=== PATIENT | female | born 1995 | race Caucasian/White ===

== ENCOUNTER → 2016-10-04 | Outpatient (CLI) | payer BC ==
[~2016-10-04] MED LIST: AUGM875T27 PO; BIOT1CAP2 PO; DEPO150I IM; FISH1000 PO; LORT5TAB PO; MESA50SU PR; MULTCAP11 PO; OMEP40CA2 PO; PERCOCET PO; RIZA5TAB3 PO; TURM500T PO; TYLE325T5 PO; [UNRECOGNIZED DRUG - OTHER]; plaquenil PO; primrose oil PO
[2016-10-04 15:23] LABS: ALBUMIN 3.9 GM/DL (3.2-5.2); ALBUMIN/GLOBULIN RATIO 1.08 (1.00-1.93); BILIRUBIN,DIRECT 0.1 MG/DL (0.0-0.2); BILIRUBIN,TOTAL 0.4 MG/DL (0.2-1.0); TOTAL PROTEIN 7.5 GM/DL (6.4-8.2)
== END ==
LOC: M WUC 10:06
PROVIDERS: ATTEND Internal Medicine Gastroenterology
DX: R10.13 Epigastric pain (principal)

== ENCOUNTER → 2016-10-07 | Outpatient (CLI) | payer BC ==
[~2016-10-07] VITALS: Ht 160 cm; Wt 56.7 kg
[~2016-10-07] MED LIST changes: +NS 1,000 ML IV SCH; +PROPOFOL 200 MG/20 ML VIAL As Ordered ONE
--- NOTE | 2016-10-07 16:16 | ROOR ---
Patient Name: Lucretia Reyez Procedure Date: 10/07/2016 4:00 PM Date of : 1995 Age: 21 Room: [facility] Gender: Female Note Status: Finalized Procedure: Upper GI endoscopy Indications: Epigastric abdominal pain Providers: Geraldo TAPIA MD Referring MD: GIORGIO GOLD MD Requesting Provider: Medicines: Monitored Anesthesia Care Complications: No immediate complications. Procedure: Pre-Anesthesia Assessment: - The heart rate, respiratory rate, oxygen saturations, blood pressure, adequacy of pulmonary ventilation, and response to care were monitored throughout the procedure. The Endoscope was introduced through the mouth, and advanced to the second part of duodenum. The upper GI endoscopy was accomplished without difficulty. The patient tolerated the procedure well. Findings: The esophagus was normal. The stomach was normal. The examined duodenum was normal. Impression: - Normal esophagus. - Normal stomach. - Normal examined duodenum. - No specimens collected. Recommendation: - Continue present medications. - Observe patient's clinical course. - Use Dicyclomine 10-20 mg every 4-6 hrs as needed for abdominal pain.--script sent to your pharmacy - Perform CT scan (computed tomography) of the abdomen with contrast at appointment to be scheduled. - To discuss todays findings, my office will call you in the next few days to schedule a follow up appointment. Geraldo Tapia MD Geraldo TAPIA MD 10/07/2016 4:15:27 PM This report has been signed electronically. Number of Addenda: 0 Note Initiated On: 10/07/2016 4:00 PM Estimated Blood Loss: Estimated blood loss: none.
[2016-10-07 16:30] VITALS: BP 106/72
== END | disposition home or self-care (01) ==
LOC: M OPP 13:50
PROVIDERS: ATTEND Internal Medicine Gastroenterology
DX: R10.13 Epigastric pain (principal); K52.9 Noninfective gastroenteritis and colitis, unspecified; R11.0 Nausea; D68.61 Antiphospholipid syndrome; M06.9 Rheumatoid arthritis, unspecified; M32.9 Systemic lupus erythematosus, unspecified; F42.9 Obsessive-compulsive disorder, unspecified; I73.00 Raynaud's syndrome without gangrene; F41.9 Anxiety disorder, unspecified; G43.909 Migraine, unspecified, not intractable, without status migrainosus; F90.9 Attention-deficit hyperactivity disorder, unspecified type; Z87.891 Personal history of nicotine dependence; Z79.899 Other long term (current) drug therapy

== ENCOUNTER → 2016-11-30 | Outpatient (CLI) | payer BC ==
[~2016-11-30] MED LIST changes: +GASTROGRAFIN SOLUTION 30ML (Q9963) As Ordered ONE; +ISOVUE-370 76% 100ML VIAL (Q9967) As Ordered ONE; -NS 1,000 ML IV SCH; -PROPOFOL 200 MG/20 ML VIAL As Ordered ONE
--- NOTE | 2016-12-01 04:01 | REP ---
Clinical: Epigastric abdominal pain and weight loss. Technique: Axial contrast enhanced images from the lung bases to the mid iliac wings using oral and 100 ml Isovue 370 intravenous contrast material with coronal and sagittal re-formations. Comparison: 05/18/2015. Findings: Lung bases clear. Visualized heart and pericardium normal. Liver, spleen, pancreas, gallbladder, bilateral adrenal glands and kidneys are normal. The visualized enteric system including stomach, small and large bowel is without obstruction or acute inflammatory process. No ascites. No free air. No obvious adenopathy. Vasculature normal. Musculoskeletal structures are intact. Impression: Normal contrast enhanced CT of the abdomen. Signed by Jamal Monae MD 12/01/2016 03:52 A
== END ==
LOC: M RAD 13:59
PROVIDERS: ATTEND Internal Medicine Gastroenterology
DX: R63.4 Abnormal weight loss (principal); R10.13 Epigastric pain; K51.30 Ulcerative (chronic) rectosigmoiditis without complications
CPT/HCPCS: 74160; Q9963; Q9967

== ENCOUNTER → 2016-12-21 | Outpatient (CLI) | payer BC ==
[~2016-12-21] MED LIST changes: -GASTROGRAFIN SOLUTION 30ML (Q9963) As Ordered ONE; -ISOVUE-370 76% 100ML VIAL (Q9967) As Ordered ONE
--- NOTE | 2016-12-21 10:59 | REP ---
Gastric emptying nuclear scintigraphy: History: Epigastric pain Technique: 0.982 mCi of technetium-99m sulfur colloid was ingested in two scrambled eggs and 6 ounces of water and sequential anterior and posterior images are acquired for an 89-minute imaging observation period. Regions of interest are drawn around the stomach to plot gastric emptying. Scintigraphic findings: Expected T1/2 is 90 minutes. 85 % emptying is observed in this patient during the 89-minute imaging observation period, for a calculated T1/2 in this patient of 51 minutes. Impression: Normal gastric emptying. Signed by Santos Miramontes MD 12/21/2016 10:50 A
== END ==
LOC: M RAD 07:41
PROVIDERS: ATTEND Internal Medicine Gastroenterology
DX: R10.13 Epigastric pain (principal)

== ENCOUNTER → 2017-06-08 | Outpatient (REF) | payer BC ==
[~2017-06-08] MED LIST changes: -AUGM875T27 PO; +AUGM875T28 PO
== END ==
LOC: M LAB REF 13:05
PROVIDERS: ATTEND Family Medicine
DX: R30.0 Dysuria (principal); N39.0 Urinary tract infection, site not specified

== ENCOUNTER 2017-08-13 11:14 | Emergency (ER) | payer BC ==
[2017-08-13 12:49] LABS: BASO # 0.1 10^3/uL (0.0-0.2); BASO % 0.7 % (0.0-1.0); EOS # 0.1 10^3/uL (0.0-0.50); EOS % 1.1 % (0.0-3.0); HEMATOCRIT 40.5 % (36.0-47.0); HEMOGLOBIN 13.9 g/dl (12.0-16.0); IMMATURE GRANULOCYTE % 0.4 % (0-3.0); LYMPH % 21.9 % (24.0-44.0); MEAN CORPUSCULAR HEMOGLOBIN 29.8 pg (27.0-33.0); MEAN CORPUSCULAR HGB CONC 34.3 g/dl (32.0-36.5); MEAN CORPUSCULAR VOLUME 86.9 fl (80.0-96.0); MONO # 0.8 10^3/uL (0.0-0.8); MONO % 8.3 % (0.0-5.0); NEUTROPHILS # 6.2 10^3/uL (1.8-7.7); NEUTROPHILS % 67.6 % (36.0-66.0); PLATELET COUNT, AUTOMATED 270 10^3/uL (150-450); RED BLOOD COUNT 4.66 10^6/uL (4.00-5.40); RED CELL DISTRIBUTION WIDTH 12.7 % (11.5-14.5); WHITE BLOOD COUNT 9.1 10^3/uL (4.0-10.0)
[2017-08-13] MEDS: ONDANSETRON 4MG/2ML VIAL (J2405) IV (12:54)
[2017-08-13] MEDS: NS 1,000 ML IV (12:55)
[2017-08-13] MEDS: MORPHINE 2 MG/ML 1ML SYRINGE (J2270) IV (12:58)
[2017-08-13 13:17] LABS: ALBUMIN 4.5 GM/DL (3.2-5.2); ALBUMIN/GLOBULIN RATIO 1.25 (1.00-1.93); ALKALINE PHOSPHATASE 68 U/L (45-117); ALT/SGPT 24 U/L (12-78); ANION GAP 8 MEQ/L (8-16); AST/SGOT 19 U/L (7-37); BILIRUBIN,DIRECT 0.2 MG/DL (0.0-0.2); BILIRUBIN,TOTAL 0.5 MG/DL (0.2-1.0); BLOOD UREA NITROGEN 18 MG/DL (7-18); CARBON DIOXIDE LEVEL 24 MEQ/L (21-32); CHLORIDE LEVEL 110 MEQ/L (98-107); CREATININE FOR GFR 0.94 MG/DL (0.55-1.30); GLOMERULAR FILTRATION RATE > 60.0 (>60); GLUCOSE, FASTING 83 MG/DL (70-100); LIPASE 113 U/L (73-393); POTASSIUM SERUM 3.7 MEQ/L (3.5-5.1); SODIUM LEVEL 142 MEQ/L (136-145); TOTAL PROTEIN 8.1 GM/DL (6.4-8.2)
[2017-08-13] MEDS ORDERED: ISOVUE-370 76% 100ML VIAL (Q9967) As Ordered (13:20)
[2017-08-13 13:41] LABS: KETONE, URINE AUTO RFX NEGATIVE (NEGATIVE); LEUKOCYTE ESTERASE UR AUTO RFX NEGATIVE (NEGATIVE); MUCUS, URINE RFX SMALL (NEGATIVE); NITRITE, URINE AUTO RFX NEGATIVE (NEGATIVE); RBC, URINE AUTO RFX 1 /HPF (0-3); SPECIFIC GRAVITY UR AUTO RFX 1.023 (1.002-1.035); SQUAM EPITHELIAL CELL UR AURFX 0 /HPF (0-6); WBC, URINE AUTO RFX 1 /HPF (0-3)
[2017-08-13] MEDS: methylPREDNISolone INJ 125 MG/2 ML VIAL (J2930) IV (15:42)
== END 2017-08-13 15:48 | disposition home or self-care (01) ==
LOC: M ED 11:14
DX: K51.90 Ulcerative colitis, unspecified, without complications (principal); F42.9 Obsessive-compulsive disorder, unspecified; M32.9 Systemic lupus erythematosus, unspecified; G43.909 Migraine, unspecified, not intractable, without status migrainosus; I73.00 Raynaud's syndrome without gangrene; D68.61 Antiphospholipid syndrome; Z87.891 Personal history of nicotine dependence; Z79.899 Other long term (current) drug therapy
CPT/HCPCS: J2405

== ENCOUNTER → 2017-08-15 | Outpatient (REF) | payer BC | LOC: M LAB REF 15:15 | DX: R19.7 Diarrhea, unspecified (principal) | CPT/HCPCS: 83630 ==

== ENCOUNTER → 2017-12-01 | Outpatient (REF) | payer BC ==
[2017-12-01 11:05] LABS: BASO % 0.7 % (0.0-1.0); EOS # 0.1 10^3/uL (0.0-0.50); EOS % 1.8 % (0.0-3.0); HEMATOCRIT 40.9 % (36.0-47.0); HEMOGLOBIN 13.8 g/dl (12.0-15.5); IMMATURE GRANULOCYTE % 0.5 % (0-3.0); LYMPH # 1.7 10^3/uL (1.5-6.5); LYMPH % 28.5 % (24.0-44.0); MEAN CORPUSCULAR HEMOGLOBIN 30.1 pg (27.0-33.0); MEAN CORPUSCULAR HGB CONC 33.7 g/dl (32.0-36.5); MEAN CORPUSCULAR VOLUME 89.1 fl (80.0-96.0); MONO # 0.4 10^3/uL (0.0-0.8); NEUTROPHILS # 3.7 10^3/uL (1.8-7.7); NEUTROPHILS % 62.5 % (36.0-66.0); PLATELET COUNT, AUTOMATED 245 10^3/uL (150-450); RED BLOOD COUNT 4.59 10^6/uL (4.00-5.40); RED CELL DISTRIBUTION WIDTH 12.4 % (11.5-14.5)
[2017-12-01 12:02] LABS: ANION GAP 6 MEQ/L (8-16); BLOOD UREA NITROGEN 20 MG/DL (7-18); CARBON DIOXIDE LEVEL 27 MEQ/L (21-32); CHLORIDE LEVEL 110 MEQ/L (98-107); CREATININE FOR GFR 1.02 MG/DL (0.55-1.30); GLOMERULAR FILTRATION RATE > 60.0 (>60); GLUCOSE, FASTING 120 MG/DL (70-100); POTASSIUM SERUM 3.8 MEQ/L (3.5-5.1); SODIUM LEVEL 143 MEQ/L (136-145)
== END ==
LOC: M LABDRAW1 10:21
DX: R53.81 Other malaise (principal); M32.9 Systemic lupus erythematosus, unspecified; N23 Unspecified renal colic
CPT/HCPCS: 80048

== ENCOUNTER → 2018-01-09 | Outpatient (REF) | payer BC ==
[2018-01-09 14:50] LABS: CHLAMYDIA DNA AMPLIFICATION NEGATIVE (NEGATIVE); GC DNA AMPLIFICATION NEGATIVE (NEGATIVE)
== END ==
LOC: M LAB REF 13:09
DX: Z11.3 Encounter for screening for infections with a predominantly sexual mode of transmission (principal); Z12.4 Encounter for screening for malignant neoplasm of cervix

== ENCOUNTER → 2018-05-23 | Outpatient (REF) | payer OTHER, BC | LOC: M SFHCPLAZ 09:06 | DX: M32.9 Systemic lupus erythematosus, unspecified (principal) ==

== ENCOUNTER → 2018-05-23 | Outpatient (REF) | payer OTHER, BC ==
[2018-05-23 19:48] LABS: AMORPHOUS SEDIMENT LARGE (NEGATIVE); APPEARANCE, URINE TURBID (CLEAR); BACTERIA, URINE AUTO NEGATIVE (NEGATIVE); BASO # 0.1 10^3/uL (0.0-0.2); BASO % 0.9 % (0.0-1.0); BILIRUBIN, URINE AUTO NEGATIVE (NEGATIVE); BLOOD, URINE BLOOD NEGATIVE (NEGATIVE); COLOR, URINE AMBER (YELLOW); EOS # 0.1 10^3/uL (0.0-0.50); EOS % 1.5 % (0.0-3.0); GLUCOSE, URINE (UA) AUTO NEGATIVE (NEGATIVE); HEMATOCRIT 42.2 % (36.0-47.0); IMMATURE GRANULOCYTE % 0.5 % (0-3.0); KETONE, URINE AUTO NEGATIVE (NEGATIVE); LEUKOCYTE ESTERASE, URINE AUTO NEGATIVE (NEGATIVE); MEAN CORPUSCULAR HEMOGLOBIN 29.7 pg (27.0-33.0); MEAN CORPUSCULAR HGB CONC 33.2 g/dl (32.0-36.5); MEAN CORPUSCULAR VOLUME 89.6 fl (80.0-96.0); MONO # 0.5 10^3/uL (0.0-0.8); MONO % 7.6 % (0.0-5.0); MUCUS, URINE SMALL (NEGATIVE); NEUTROPHILS # 3.9 10^3/uL (1.8-7.7); NEUTROPHILS % 59.5 % (36.0-66.0); NITRITE, URINE AUTO NEGATIVE (NEGATIVE); PLATELET COUNT, AUTOMATED 267 10^3/uL (150-450); PROTEIN, URINE AUTO NEGATIVE (NEGATIVE); RBC, URINE AUTO 0 /HPF (0-3); RED BLOOD COUNT 4.71 10^6/uL (4.00-5.40); RED CELL DISTRIBUTION WIDTH 12.6 % (11.5-14.5); SPECIFIC GRAVITY URINE AUTO 1.029 (1.002-1.035); SQUAMOUS EPITHELIAL CELL UR AU 0 /HPF (0-6); UROBILINOGEN, URINE AUTO 0.2 mg/dL (0.0-2.0); WBC, URINE AUTO 0 /HPF (0-3); WHITE BLOOD COUNT 6.6 10^3/uL (4.0-10.0)
[2018-05-23 19:54] LABS: ALBUMIN 4.4 GM/DL (3.2-5.2); ALBUMIN/GLOBULIN RATIO 1.29 (1.00-1.93); ALKALINE PHOSPHATASE 75 U/L (45-117); ALT/SGPT 26 U/L (12-78); ANION GAP 4 MEQ/L (8-16); AST/SGOT 20 U/L (7-37); BILIRUBIN,TOTAL 0.5 MG/DL (0.2-1.0); BLOOD UREA NITROGEN 25 MG/DL (7-18); C REACTIVE PROTEIN QUANTITATIV < 0.30 MG/DL (0.00-0.30); CALCIUM LEVEL 9.2 MG/DL (8.5-10.1); CARBON DIOXIDE LEVEL 28 MEQ/L (21-32); CHLORIDE LEVEL 109 MEQ/L (98-107); COMPLEMENT C3 96 MG/DL (90-180); COMPLEMENT C4 21 MG/DL (10-40); CREATININE FOR GFR 0.93 MG/DL (0.55-1.30); GLOMERULAR FILTRATION RATE > 60.0 (>60); GLUCOSE, FASTING 70 MG/DL (70-100); POTASSIUM SERUM 3.7 MEQ/L (3.5-5.1); SODIUM LEVEL 141 MEQ/L (136-145); TOTAL PROTEIN 7.8 GM/DL (6.4-8.2)
[2018-05-23 20:14] LABS: TOTAL PROTEIN,RANDOM URINE 32.4 MG/DL (0.0-12.0)
[2018-05-24 06:57] LABS: ERYTHROCYTE SEDIMENTATION RATE 6 mm/hr (0-20)
[2018-05-28 00:10] LABS: ANA (HEP2) Positive (.); ANTI DOUBLE STRAND-DNA AB 1 IU/mL (0-9); ANTI JO-1 ANTIBODIES <0.2 AI (0.0-0.9); BETA-2 GLYCOPROTEIN I ABY IGA <9 (0-25); BETA-2 GLYCOPROTEIN I ABY IGG 11 (0-20); BETA-2 GLYCOPROTEIN I ABY IGM <9 (0-32); CARDIOLIPIN IGA ANTIBODY <9 APL U/mL (0-11); CARDIOLIPIN IGG ANTIBODY <9 GPL U/mL (0-14); CARDIOLIPIN IGM ANTIBODY 11 MPL U/mL (0-12); RNP ANTIBODY < 0.2 AI (0.0-0.9); SMITHS ANTIBODY < 0.2 AI (0.0-0.9); SSA SJOGRENS A <0.2 AI (0.0-0.9); SSB SJOGRENS B <0.2 AI (0.0-0.9)
[2018-05-29 09:17] LABS: DRVV SCREEN 41.1 SEC
== END ==
LOC: M SFHCPLAZ 19:05
DX: M32.9 Systemic lupus erythematosus, unspecified (principal)
CPT/HCPCS: 80053

== ENCOUNTER → 2018-05-23 | Outpatient (CLI) | payer OTHER, BC | LOC: M ADAMS 15:22 | DX: M25.571 Pain in right ankle and joints of right foot (principal) | CPT/HCPCS: 73610 ==

== ENCOUNTER 2023-08-07 22:47 | Emergency (ER) | payer BC, OTHER ==
[~2023-08-07] VITALS: Ht 165.1 cm; Wt 70.1 kg
[~2023-08-07 22:47] MED LIST changes: +AMIT10TA7 PO; +LEXA1TAB2 PO; +LIAL1.2T PO; -OMEP40CA2 PO; +OMEP40CA4 PO; +PRED20TA PO; -RIZA5TAB3 PO; +RIZA5TAB52 PO; +ZOFR4TAB14 PO
[2023-08-08] MEDS: ONDANSETRON 4MG 2ML VIAL IV ONE (00:41)
[2023-08-08] MEDS: NS 1,000 ML IV ONE (00:41)
[2023-08-08] MEDS: KETOROLAC 30 MG/ML 1ML VIAL IV ONE (00:41)
[2023-08-08] MEDS ORDERED: ONDA4TAB6 PO (00:48)
[2023-08-08] MEDS ORDERED: OSEL75CA PO (00:48)
[2023-08-08 00:51] LABS: BASO % 0.4 % (0.0-1.0); EOS % 0.2 % (0.0-3.0); HEMATOCRIT 37.9 % (36.0-47.0); HEMOGLOBIN 12.8 g/dl (12.0-15.5); LYMPH # 0.4 10^3/uL (1.5-5.0); LYMPH % 7.7 % (24.0-44.0); MEAN CORPUSCULAR HEMOGLOBIN 27.8 pg (27.0-33.0); MEAN CORPUSCULAR HGB CONC 33.8 g/dl (32.0-36.5); MEAN CORPUSCULAR VOLUME 82.4 fl (80.0-96.0); MONO # 0.7 10^3/uL (0.0-0.8); MONO % 13.9 % (2.0-8.0); NEUTROPHILS # 3.9 10^3/uL (1.5-8.5); PLATELET COUNT, AUTOMATED 219 10^3/uL (150-450); WHITE BLOOD COUNT 5.1 10^3/uL (4.0-10.0)
[2023-08-08 01:16] LABS: ALKALINE PHOSPHATASE 71 U/L (46-116); ALT/SGPT 12 U/L (7.0-40); AST/SGOT 13 U/L (<34); BILIRUBIN,TOTAL 0.6 MG/DL (0.3-1.2); BLOOD UREA NITROGEN 15 MG/DL (9-23); CALCIUM LEVEL 8.7 MG/DL (8.5-10.1); CARBON DIOXIDE LEVEL 21 MMOL/L (20-31); CHLORIDE LEVEL 108 MMOL/L (98-107); CREATININE FOR GFR 0.92 MG/DL (0.55-1.30); GLOMERULAR FILTRATION RATE > 60.0 (>60); GLUCOSE, FASTING 95 MG/DL (60-100); MAGNESIUM LEVEL 1.5 MG/DL (1.8-2.4); POTASSIUM SERUM 3.1 MMOL/L (3.5-5.1); SODIUM LEVEL 138 MMOL/L (136-145); TOTAL PROTEIN 7.3 G/DL (5.7-8.2)
[2023-08-08] MEDS: OSELTAMIVIR PHOSPHATE 75 MG CAP (TAMIFLU) PO ONE (01:51)
[2023-08-08 02:00] VITALS: BP 110/58
[2023-08-08 02:02] VITALS: TEMP 99.8; O2SAT 96
[2023-08-08] MEDS: POTASSIUM CHLORIDE 10% LIQ 20MEQ/15ML UDC PO ONE (02:03)
[2023-08-08] MEDS: MAGNESIUM OXIDE 400MG TAB (MAG-OX) PO ONE (02:03)
== END 2023-08-08 02:15 | disposition home or self-care (01) ==
LOC: EDBD 22:47 → M ED 22:47
DX: J09.X2 Influenza due to identified novel influenza A virus with other respiratory manifestations (principal); K21.9 Gastro-esophageal reflux disease without esophagitis; G43.909 Migraine, unspecified, not intractable, without status migrainosus; M32.10 Systemic lupus erythematosus, organ or system involvement unspecified; Z79.83 Long term (current) use of bisphosphonates; Z79.52 Long term (current) use of systemic steroids; Z79.899 Other long term (current) drug therapy
CPT/HCPCS: 71045; 80053; 83735; 85025; 87486; 87581; 87633; 87798; 96361; 96374; 99284; J1885; J2405

== ENCOUNTER 2024-08-21 13:06 | Emergency (ER) | payer OTHER ==
[~2024-08-21] VITALS: Ht 165.1 cm; Wt 61.4 kg
[~2024-08-21 13:06] MED LIST changes: +ONDA-282 PO; +OSEL75CA PO
[2024-08-21 16:30] VITALS: BP 142/83; TEMP 97.3; O2SAT 98
== END 2024-08-21 16:30 | disposition home or self-care (01) ==
LOC: M ED 13:06
DX: S43.402A Unspecified sprain of left shoulder joint, initial encounter (principal); S13.4XXA Sprain of ligaments of cervical spine, initial encounter; V44.5XXA Car driver injured in collision with heavy transport vehicle or bus in traffic accident, initial encounter; Y92.9 Unspecified place or not applicable; Y93.9 Activity, unspecified; Y99.9 Unspecified external cause status; M06.9 Rheumatoid arthritis, unspecified; M32.9 Systemic lupus erythematosus, unspecified; K51.90 Ulcerative colitis, unspecified, without complications; F17.200 Nicotine dependence, unspecified, uncomplicated; Z79.899 Other long term (current) drug therapy

== ENCOUNTER 2024-09-02 13:23 | Inpatient (IN) | payer OTHER ==
[~2024-09-02] VITALS: Ht 165.1 cm; Wt 62.6 kg
[2024-09-02] MEDS ORDERED: SERTRALINE (13:49)
[2024-09-02] MEDS ORDERED: HYDR200T46 PO (13:49)
[2024-09-02 14:30] LABS: HEMOGLOBIN 13.8 g/dl (12.0-15.5); MEAN CORPUSCULAR HEMOGLOBIN 28.7 pg (27.0-33.0); MEAN CORPUSCULAR HGB CONC 33.7 g/dl (32.0-36.5); MEAN CORPUSCULAR VOLUME 85.2 fl (80.0-96.0); PLATELET COUNT, AUTOMATED 327 10^3/uL (150-450); RED BLOOD COUNT 4.81 10^6/uL (4.00-5.40); WHITE BLOOD COUNT 9.4 10^3/uL (4.0-10.0)
[2024-09-02] MEDS ORDERED: ZOLO100T PO (14:43)
[2024-09-02] MEDS ORDERED: HOME MED LIST COMPLETE! XX SCH (14:45)
[2024-09-02] MEDS ORDERED: PREN200C PO (14:52)
[2024-09-02 14:53] LABS: AMPHETAMINES LEVEL URINE NEGATIVE (NEGATIVE); BARBITURATES URINE NEGATIVE (NEGATIVE); COCAINE METABOLITE URINE NEGATIVE (NEGATIVE)
[2024-09-02 14:54] LABS: BENZODIAZEPINES URINE NEGATIVE (NEGATIVE); ETHYL ALCOHOL (ETHANOL) < 0.003 % (0.000-0.010); METHADONE URINE NEGATIVE (NEGATIVE); OPIATES URINE NEGATIVE (NEGATIVE); PHENCYCLIDINE URINE NEGATIVE (NEGATIVE)
[2024-09-02 14:56] LABS: ALBUMIN 4.1 G/DL (3.2-5.2); ALKALINE PHOSPHATASE 72 U/L (35-104); ALT/SGPT 30 U/L (7.0-40); AST/SGOT 20 U/L (<34); BILIRUBIN,DIRECT < 0.1 MG/DL (<0.4); BILIRUBIN,TOTAL 0.3 MG/DL (0.3-1.2); BLOOD UREA NITROGEN 15 MG/DL (9-23); CALCIUM LEVEL 9.5 MG/DL (8.5-10.1); CANNABINOIDS URINE POSITIVE (NEGATIVE); CARBON DIOXIDE LEVEL 28 MMOL/L (20-31); CHLORIDE LEVEL 105 MMOL/L (98-107); GLOMERULAR FILTRATION RATE > 60.0 (>60); GLUCOSE, FASTING 66 MG/DL (60-100); POTASSIUM SERUM 4.2 MMOL/L (3.5-5.1); SALICYLATE LEVEL < 3.0 MG/DL (<30); SODIUM LEVEL 140 MMOL/L (136-145); TOTAL PROTEIN 7.4 G/DL (5.7-8.2)
[2024-09-02 14:58] LABS: HCG, SERUM QUALITATIVE POSITIVE (NEGATIVE)
[2024-09-02 14:59] LABS: THYROID STIMULATING HORMONE 0.783 uIU/ML (0.55-4.78)
[2024-09-02] MEDS ORDERED: traZODone 50 MG TAB PO PRN (19:55)
[2024-09-02] MEDS ORDERED: ACETAMINOPHEN 325 MG TAB PO PRN (19:55)
[2024-09-02] MEDS ORDERED: IBUPROFEN 400MG TAB PO PRN (19:55)
[2024-09-02] MEDS ORDERED: MOM 30ML SUSPENSION UDC PO PRN (19:55)
[2024-09-02] MEDS ORDERED: MAALOX 30 ML SUSP *UDC PO PRN (19:55)
[2024-09-02 22:56] VITALS: BP 104/72; TEMP 97.7; O2SAT 99
[2024-09-03 06:21] VITALS: BP 110/54; TEMP 97.5; O2SAT 100
[2024-09-03] MEDS: SERTRALINE 100 MG TAB PO SCH (10:17)
[2024-09-03] MEDS: SERTRALINE HCL 25 MG TABLET PO SCH (10:17)
[2024-09-03] MEDS: PRENATAL VITAMINS CHEWABLE TABLET PO SCH (10:18)
[2024-09-03] MEDS: HYDROXYCHLOROQUINE 200 MG TAB PO SCH (10:18)
[2024-09-03 14:59] VITALS: BP 156/78; TEMP 98.5; O2SAT 97
[2024-09-04 06:26] VITALS: BP 103/59; TEMP 97.6; O2SAT 99
[2024-09-04] MEDS: diphenhydrAMINE 25MG CAP PO PRN (09:04)
[2024-09-04] MEDS: OLANZapine ORAL DISINTEGRATING TAB 5MG PO PRN (09:58)
[2024-09-04 15:09] VITALS: BP 118/58; TEMP 97.5; O2SAT 99
[2024-09-05 06:27] VITALS: BP 109/61; TEMP 97.5; O2SAT 100
[2024-09-05] MEDS ORDERED: SERT25TA21 PO (11:32)
== END 2024-09-05 12:41 | disposition home or self-care (01) | DRG 566 ==
LOC: M ED 13:23 → M ED INP 16:43 → M PSY 21:57
PROVIDERS: ADMIT Psychiatry & Neurology Psychiatry; ATTEND Psychiatry & Neurology Psychiatry
DX: O99.341 Other mental disorders complicating pregnancy, first trimester (principal); F32.9 Major depressive disorder, single episode, unspecified; F41.1 Generalized anxiety disorder; F43.10 Post-traumatic stress disorder, unspecified; R45.851 Suicidal ideations; F60.3 Borderline personality disorder; O26.891 Other specified pregnancy related conditions, first trimester; M32.9 Systemic lupus erythematosus, unspecified; O99.611 Diseases of the digestive system complicating pregnancy, first trimester; K51.90 Ulcerative colitis, unspecified, without complications; Z62.810 Personal history of physical and sexual abuse in childhood; Z81.8 Family history of other mental and behavioral disorders; Z87.891 Personal history of nicotine dependence; Z56.0 Unemployment, unspecified; Z79.899 Other long term (current) drug therapy; Z3A.01 Less than 8 weeks gestation of pregnancy; Z91.51 Personal history of suicidal behavior

== ENCOUNTER 2025-03-24 10:35 | Emergency (ER) | payer OTHER ==
[~2025-03-24 10:35] MED LIST changes: +AMIT10TA11 PO; -AMIT10TA7 PO; +HYDR200T46 PO; +PREN200C PO; +SERT25TA21 PO; +SERTRALINE; +ZOLO100T PO
[2025-03-24 10:37] VITALS: BP 119/73; TEMP 97.7; O2SAT 100
[2025-03-24] MEDS ORDERED: ZOLO50TA PO (11:08)
[2025-03-24] MEDS ORDERED: PRENTAB9 PO (11:10)
[2025-03-24] MEDS ORDERED: ACET-897 PO (11:11)
== END 2025-03-24 10:39 | disposition admitted as inpatient to this hospital (09) ==
LOC: M ED 10:35
DX: Z53.21 Procedure and treatment not carried out due to patient leaving prior to being seen by health care provider (principal)

== ENCOUNTER 2025-03-24 10:42 | Outpatient (CLI) | payer OTHER ==
[~2025-03-24] VITALS: Ht 165.1 cm; Wt 82.5 kg
[2025-03-24] MEDS ORDERED: ZOLO50TA PO (11:08)
[2025-03-24] MEDS ORDERED: PRENTAB9 PO (11:10)
[2025-03-24] MEDS ORDERED: ACET-897 PO (11:11)
[2025-03-24 11:14] VITALS: BP 123/73
[2025-03-24 12:08] LABS: BASO # 0.0 10^3/uL (0.0-0.2); BASO % 0.4 % (0.0-1.0); EOS # 0.1 10^3/uL (0.0-0.5); EOS % 1.1 % (0.0-3.0); LYMPH # 1.6 10^3/uL (1.5-5.0); LYMPH % 14.4 % (24.0-44.0); MONO # 0.7 10^3/uL (0.0-0.8); MONO % 6.8 % (2.0-8.0); NEUTROPHILS # 8.0 10^3/uL (1.5-8.5); NEUTROPHILS % 74.0 % (36.0-66.0); PLATELET COUNT, AUTOMATED 215 10^3/uL (150-450)
[2025-03-24 12:20] LABS: INR 0.9
[2025-03-24 14:02] LABS: APPEARANCE, URINE HAZY (CLEAR); BACTERIA, URINE AUTO NEGATIVE (NEGATIVE); BILIRUBIN, URINE AUTO NEGATIVE (NEGATIVE); BLOOD, URINE BLOOD NEGATIVE (NEGATIVE); GLUCOSE, URINE (UA) AUTO NEGATIVE (NEGATIVE); KETONE, URINE AUTO NEGATIVE (NEGATIVE); LEUKOCYTE ESTERASE, URINE AUTO NEGATIVE (NEGATIVE); MUCUS, URINE MODERATE (NEGATIVE); NITRITE, URINE AUTO NEGATIVE (NEGATIVE); PROTEIN, URINE AUTO 1+ mg/dL (NEGATIVE); RBC, URINE AUTO 0 /HPF (0-3); SPECIFIC GRAVITY URINE AUTO 1.032 (1.002-1.035); SQUAMOUS EPITHELIAL CELL UR AU 18 /HPF (0-6); UROBILINOGEN, URINE AUTO 0.2 mg/dL (0.0-2.0); WBC, URINE AUTO 1 /HPF (0-3)
[2025-03-24 15:01] VITALS: BP 131/69
== END 2025-03-24 15:10 | disposition home or self-care (01) ==
LOC: M LDO 10:42
PROVIDERS: ATTEND Advanced Practice Midwife
DX: O26.893 Other specified pregnancy related conditions, third trimester (principal); O99.343 Other mental disorders complicating pregnancy, third trimester; O99.613 Diseases of the digestive system complicating pregnancy, third trimester; R10.2 Pelvic and perineal pain; M32.9 Systemic lupus erythematosus, unspecified; K51.80 Other ulcerative colitis without complications; F32.9 Major depressive disorder, single episode, unspecified; F41.1 Generalized anxiety disorder; M06.9 Rheumatoid arthritis, unspecified; F60.3 Borderline personality disorder; Z3A.34 34 weeks gestation of pregnancy; Y92.9 Unspecified place or not applicable; Y93.9 Activity, unspecified; Y99.9 Unspecified external cause status
CPT/HCPCS: 36415; 59025; 81001; 85025; 85384; 85460; 85610; 85730; 87086; G0463

== ENCOUNTER 2025-06-05 22:16 | Emergency (ER) | payer OTHER ==
[~2025-06-05] VITALS: Ht 165.1 cm; Wt 72.6 kg
[~2025-06-05 22:16] MED LIST changes: +ACET-897 PO; +PRENTAB9 PO; +ZOLO50TA PO
[2025-06-05 22:18] VITALS: BP 112/67; TEMP 98.3; O2SAT 96
== END 2025-06-06 01:59 | disposition left against medical advice (07) ==
LOC: M ED 22:16
DX: Z53.21 Procedure and treatment not carried out due to patient leaving prior to being seen by health care provider (principal)